=== PATIENT | male | born 2000 | race Caucasian/White ===

== ENCOUNTER 2019-03-02 10:21 | Outpatient (CLI) | payer OTHER ==
--- NOTE | 2019-03-02 12:24 | MRI ---
MRI LUMBAR SPINE WITHOUT CONTRAST: Date: 03/02/19 COMPARISON: None. HISTORY: Bilateral knee pain and burning for a few months, numbness from the knees down. TECHNIQUE: Multiplanar, multisequence MR imaging of the lumbar spine is obtained without contrast. FINDINGS: The sagittal STIR imaging demonstrates no focal area of osseous marrow edema. Lumbar vertebral body h eight and alignment appears normal. On the basis of five lumbar-type vertebral bodies, conus medullar is terminates at T12-L1. T12-L1: Intervertebral disc height and signal intensity is within normal limits with no significant central canal or neural foraminal stenosis. L1-2: Intervertebral disc height and signal intensity within normal limits with no central canal or neural foraminal stenosis. L2-3: Intervertebral disc height and signal intensity within normal limits with no central canal or neural foraminal stenosis. L3-4: Intervertebral disc height and signal intensity within normal limits with no central canal or neural foraminal stenosis. L4-5: Intervertebral disc height and signal intensity within normal limits with no significant centr al canal or neural foraminal stenosis. L5-S1: Intervertebral disc height and signal intensity is within normal limits with no significant c entral canal or neural foraminal stenosis. The imaged retroperitoneal structures appear grossly unremarkable. IMPRESSION: Unremarkable lumbar spine MRI. POS: [facility]
== END 2019-03-02 10:22 | disposition home or self-care (01) ==
LOC: TBSIIMAG 10:21
PROVIDERS: ATTEND Orthopaedic Surgery
DX: R20.0 Anesthesia of skin (principal)
CPT/HCPCS: 72148

== ENCOUNTER 2019-11-04 08:33 | Emergency (ER) | payer OTHER ==
[2019-11-06 11:43] LABS: SARS-CoV-2 MS2 Positive; SARS-CoV-2 N Gene Positive; SARS-CoV-2 S Gene Positive; SARS-CoV-2 orf1ab Positive
== END 2019-11-04 15:17 | disposition home or self-care (01) ==
LOC: ERS 08:33
DX: U07.1 COVID-19 (principal)
CPT/HCPCS: 87635; 99283; U0003

== ENCOUNTER 2019-11-17 10:02 | Emergency (ER) | payer OTHER ==
[2019-11-18 16:06] LABS: SARS-CoV-2 MS2 Positive; SARS-CoV-2 N Gene Positive; SARS-CoV-2 S Gene Positive; SARS-CoV-2 orf1ab Positive
== END 2019-11-17 10:26 | disposition home or self-care (01) ==
LOC: ERS 10:02
DX: U07.1 COVID-19 (principal)
CPT/HCPCS: 87635; 99283; U0003